=== PATIENT | female | born 1940 | race Caucasian/White ===

== ENCOUNTER 2016-09-12 14:47 | Emergency (ER) | payer OTHER ==
[~2016-09-12] VITALS: Ht 152.4 cm; Wt 71.8 kg
[~2016-09-12 14:47] MED LIST: AMLODIPINE BESY10 MG; ARTHROTEC 751 TABLET; ATENOLOL50 MG; BENAZEPRIL HCL20 MG; LEVOTHYROXINE75 MCG; OMEPRAZOLE40 M1; RANITIDINE HCL300 MG; ZETIA10 MG
[2016-09-12 16:09] LABS: HEMATOCRIT 42.7 % (36.0-46.0); MCHC 33.3 G/DL (30.0-36.0); MCV 90.3 FL (83-99); MEAN PLAT.VOLUME 9.2 uM^3 (9.5-12.4); PLATELET COUNT 343 K/uL (156-360); RBC DIS.WIDTH-CV 13.2 % (11.8-14.6); RBC DIS.WIDTH-SD 43.7 % (39-53); RED BLOOD COUNT 4.73 M/uL (3.80-5.20); WHITE BLOOD COUNT 5.2 K/uL (4.1-10.2)
[2016-09-12 16:18] LABS: CHLORIDE 106 mEq/L (99-109); POTASSIUM 3.8 mEq/L (3.7-5.4); SODIUM 140 mEq/L (136-147)
[2016-09-12 16:20] LABS: GLUCOSE 130 mg/dL (70-99)
[2016-09-12 16:21] LABS: ANION GAP 10 MEQ/L (2-14)
[2016-09-12 16:22] LABS: TOTAL BILIRUBIN 0.6 mg/dL (0.0-1.0)
[2016-09-12 16:23] LABS: ALKALINE PHOSPHATASE 93 IU/L (3-129)
[2016-09-12 16:24] LABS: GFR ESTIMATE (CALCULATED) > 59 mL/min/
[2016-09-12 16:25] LABS: UREA NITROGEN (BUN) 13 mg/dL (9-23)
[2016-09-12 16:27] LABS: LIPASE 14 U/L (1.0-51.0)
[2016-09-12 17:12] LABS: ADD MIUA? NO; BILIRUBIN NEGATIVE; BLOOD NEGATIVE; COLOR YELLOW ((YELLOW)); GLUCOSE (STRIP) NEGATIVE; KETONES NEGATIVE; LEUKOCYTES NEGATIVE; NITRITE NEGATIVE; PROTEIN (STRIP) NEGATIVE; SPECIFIC GRAVITY 1.009 (1.000-1.030); UCUL ADDED? NO; UROBILINOGEN 0.2 MG/DL (0.2-1.0)
[2016-09-12] MEDS ORDERED: BENTYL20 MG PO (18:14)
[2016-09-12] MEDS ORDERED: ZOFRAN ODT4 MG PO (18:14)
[2016-09-12 18:34] VITALS: BP 137/88
== END 2016-09-12 18:35 | disposition home or self-care (01) ==
LOC: EME 14:47
DX: R10.9 Unspecified abdominal pain (principal); I10 Essential (primary) hypertension; K21.9 Gastro-esophageal reflux disease without esophagitis
CPT/HCPCS: 74000; 80053; 81003; 83690; 85027; 99281; 99284